=== PATIENT | male | born 1980 | race Caucasian/White ===

== ENCOUNTER → 2016-06-29 | Outpatient (CLI) | payer OTHER ==
[~2016-06-29] MED LIST: ACETAMINOPHEN650 M2 PO; ALDACTONE50 MG PO; B COMPLEX1 EACH PO; BACTRIM DS1 TAB PO; CIPRO500 MG PO; DELTASONE10 MG PO; DELTASONE20 MG PO; DIFLUCAN100 MG PO; ENULOSE UD L30 ML/EA PO; FOLIC ACID PO; FOLIC ACID0.8 MG PO; GLUCOSAMINE CH PO; GLUCOSAMINE CH1 EAC6 PO; LAMICTAL200 MG PO; LASIX40 MG PO; LIBRIUM25 MG PO; MAGNESIUM OXID400 MG PO; MELATONIN PO; MELATONIN3 MG PO; METHYLPREDNISOLO4 M1 PO; METRONIDAZOLE500 MG PO; NORCO 5-325 MG1 TAB PO; PEPCID20 MG PO; PREDNISONE20 MG PO; PRILOSEC20 MG PO; PRILOSEC40 MG PO; THERA-VITE W/ B1 TAB PO; TREXAN (REVIA)50 MG PO; VISTARIL25 MG PO; VITAMIN B COMP1 EACH PO; VITAMIN B-1250 MG PO; VITAMIN B-150 MG PO; VITAMIN B1 PO; XANAX0.5 MG PO; ZOLOFT50 M1 PO; ZOLOFT50 MG PO
== END | disposition disaster alternative care site (69) ==
LOC: GRAD 08:41
DX: K70.30 Alcoholic cirrhosis of liver without ascites (principal); R16.1 Splenomegaly, not elsewhere classified